=== PATIENT | female | born 1950 | race Caucasian/White ===

== ENCOUNTER → 2017-03-14 13:56 | Outpatient (CLI) | payer MEDICARE, OTHER, SELFPAY ==
[2017-03-14 14:13] LABS: Basophils % 0.4 % (0.1-2.0); Eosinophils # 0.1 K/mm3 (0.0-0.4); Eosinophils % 1.8 % (0.1-12.0); Hematocrit 37.7 % (37.0-47.0); Hemoglobin 12.2 g/dL (12.2-16.2); Lymphocytes # 2.2 K/mm3 (0.7-4.5); Lymphocytes % 34.7 K/mm3 (10-50); Mean Corpuscular HGB Conc 32.4 g/dL (31.8-35.4); Mean Corpuscular Volume 92.5 fl (81-99); Mean Platelet Volume 7.3 fl (7.4-10.4); Monocytes # 0.4 K/mm3 (0.1-1.0); Monocytes % 6.7 % (1.7-9.3); Neutrophils # 3.7 K/mm3 (1.8-7.8); Neutrophils % 56.4 % (37.0-80.0); Platelet Count 253 K/mm3 (142-424); Red Blood Count 4.07 M/mm3 (4.20-5.40); Red Cell Distribution Width 12.7 % (11.5-17.5); White Blood Count 6.5 K/mm3 (4.8-10.8)
[2017-03-14 15:00] LABS: Anion Gap 10.3 mEq/L (5-15); Blood Urea Nitrogen 10 mg/dL (7-18); Carbon Dioxide 29 mmol/L (21.0-32.0); Chloride 106 mmol/L (98-107); Creatinine,Serum 0.61 mg/dL (0.55-1.02); Estimated Glomerular Filt Rate 98 ml/min (>60); GFR (African American) 118 ML/MIN (>60); Glucose 96 mg/dL (74-106); Potassium 4.3 mmoL/L (3.5-5.1); Sodium 141 mmol/L (136-145)
== END ==
PROVIDERS: Family Provider Emergency Medicine; PCP Emergency Medicine; Visit Provider Surgery
DX: Z86.010 Personal history of colon polyps (principal)
CPT/HCPCS: 80048; 85025

== ENCOUNTER 2017-03-17 09:45 | Day surgery (SDC) | payer MEDICARE, OTHER, SELFPAY ==
[2017-03-16 10:39] VITALS: BMI 61.3
[2017-03-17 10:08] VITALS: BP 147/76; PULSE 69; RESP 18; TEMP 36.9; O2SAT 95
--- NOTE | 2017-03-17 10:11 | HMH.ANESCL ---
[facility] Anesthesia Checklist - Structural Data Admitted From: Home Planned Operative Procedure/s: colonoscopy Consent for Planned Operative Procedure(s) Verified: Yes Verified Documents: Surgical Consent - Airway Assessment C-Spine Mobility Assessed: Yes TMJ Mobility Assessed: Yes Dentition: Good Dentition - Neurological Assessment Level of Consciousness: Awake, Alert - Anesthesia Plan Anesthesia Risk discussed: Yes Anesthesia Plan: Verified ASA Class: III Anesthesia Type: MAC [facility] Anesthesia HX I have reviewed the patient's past medical history: Yes Medical History: Reports:: Cancer, Dementia, Hypertension, Lung Disease (asthma/lung nodules) Denies:: Diabetes Mellitus Type 1, Diabetes Mellitus Type 2 Laterality Cases: Left: Arthroscopy Shoulder, Bilateral: Other Other Surgeries: Yes: Appendectomy, Cancer Surgery (skin), Dilation and Curettage, Hysterectomy-Total, Hysterectomy-Partial, Other *Family Hx:: No significant family history
[2017-03-17 10:55] VITALS: O2SAT 98
--- NOTE | 2017-03-17 11:52 | HMH.SCOPE ---
- Procedure: Date: 03/17/17 Procedure Performed:: Colonoscopy with polypectomy Indications:: This is a 66-year-old female who underwent colonoscopy in December 2016. This procedure was somewhat complicated by severe spasticity, lack of relaxation, and moderate preparation. Focal inflammation of the cecum was biopsied and changes consistent with serrated adenoma were noted pathologically. Large complex polyps of the right colon and transverse colon were also excised. Performing Provider:: Brian Patel MD Referring Provider:: Dr. Pace Sedation:: Monitored anesthesia care Procedure:: After informed consent was obtained, the patient was taken to the endoscopy suite. Monitored anesthesia care ensued after she was transferred to the left lateral decubitus position. Digital rectal exam revealed no significant abnormality. The colonoscope was placed in position. The entire colon was evaluated. Bowel preparation was fair to moderate with large volume irrigation and suctioning used to improve visualization. Once again, the patient had fairly severe spasticity and lack of relaxation making visualization somewhat difficult. A polyp at [address] by way of cold biopsy forceps. A 1cm sessile transverse colon polyp and adjacent polyp were excised by way of snare. A cecal polyp was excised with cold biopsy forceps. A 9 mm ridge polyp of the cecum was excised by way of snare. No additional lesions were noted. An isolated diverticulum in the sigmoid colon was noted. The colonoscope was carefully removed and the patient was transferred to recovery. Findings:: Fair to moderate bowel preparation Once again, fairly severe spasticity and lack of relaxation were encountered Isolated sigmoid diverticulum Polyp at 40 1 cm sessile transverse colon polyp with adjacent polyp Cecal polyp 9 mm rich polyp of the cecum Specimens:: Polyp at 40 1 cm sessile transverse colon polyp with adjacent polyp Cecal polyp 9 mm rich polyp of the cecum Recommendations:: Repeat colonoscopy is pending pathology but will likely be around 1 year secondary to size/nature/number of polyps, spasticity, lack of relaxation, and somewhat limiting preparation Complications:: No immediate Estimated blood obtained (mL): 1
[2017-03-17 11:55] VITALS: BP 127/71; PULSE 100; RESP 20; TEMP 36.2; O2SAT 94
[2017-03-17 12:05] VITALS: BP 136/71; PULSE 88; RESP 18; O2SAT 94
[2017-03-17 12:15] VITALS: BP 145/77; PULSE 84; RESP 18; O2SAT 95
[2017-03-17 12:25] VITALS: BP 137/76; PULSE 82; RESP 16; O2SAT 94
== END 2017-03-17 12:25 | disposition home or self-care (01) ==
LOC: OUTP 09:49
PROVIDERS: Family Provider Emergency Medicine; PCP Emergency Medicine; Visit Provider Surgery
PROC: 0DJD8ZZ Inspection of Lower Intestinal Tract, Via Natural or Artificial Opening Endoscopic (ICD-10-PCS; principal; 2017-03-17 10:45)
DX: Z86.010 Personal history of colon polyps (principal); K63.5 Polyp of colon; K57.30 Diverticulosis of large intestine without perforation or abscess without bleeding
CPT/HCPCS: 45380; 45385; 88305; J2405; J2704

== ENCOUNTER → 2017-06-23 12:32 | Outpatient (CLI) | payer MEDICARE, OTHER, SELFPAY ==
--- NOTE | 2017-06-23 12:35 | XR_ITS ---
XR chest 2V HISTORY: ITS.REASON: cough ORDERING PHYSICIAN: Delicia Persaud PATIENT AGE: 66 years COMPARISON: 01/21/2016 FINDINGS: The cardiomediastinal silhouette and pulmonary vascularity are within normal limits. Patchy density is noted in both lung bases may be due to areas of atelectasis and/or infiltrate. Upper lobes are clear. There is some calcification noted at the region of the humeral necks on both sides medially. IMPRESSION: 1. Mild bibasilar atelectasis and/or infiltrate 2. Nonspecific ossification medial to the humeral neck on both sides
== END ==
PROVIDERS: PCP Nurse Practitioner Family; Visit Provider Nurse Practitioner Family
DX: R05 Cough (principal)
CPT/HCPCS: 71046

== ENCOUNTER → 2017-07-05 10:54 | Outpatient (CLI) | payer MEDICARE, OTHER, SELFPAY ==
--- NOTE | 2017-07-05 11:00 | XR_ITS ---
XR chest 2V HISTORY: ITS.REASON: PNEUMONIA ORDERING PHYSICIAN: Belkys Briseno PATIENT AGE: 67 years COMPARISON: 06/23/2017 FINDINGS: The cardiomediastinal silhouette and pulmonary vascularity are within normal limits. Right lower lobe airspace disease has improved. There is some minimal residual density within the lingula residual infiltrate slightly improved. IMPRESSION: 1. Improved right lower lobe infiltrate. 2. Persistent but slightly improved lingular infiltrate
== END ==
PROVIDERS: PCP Family Medicine; Visit Provider Nurse Practitioner Family
DX: J18.9 Pneumonia, unspecified organism (principal)
CPT/HCPCS: 71046

== ENCOUNTER → 2017-07-22 15:29 | Outpatient (CLI) | payer MEDICARE, OTHER, SELFPAY ==
--- NOTE | 2017-07-22 15:44 | XR_ITS ---
EXAM: XR cervical spine 5V HISTORY: ITS.REASON: CERVICALGIA ORDERING PHYSICIAN: Muna Harris PATIENT AGE: 67 years COMPARISON: None FINDINGS: There is straightening of the cervical lordosis. Degenerative disc disease is present at C4-C5, C5-C6, and C6-C7 with mild foraminal narrowing on the right at C5-C6 and on the left at C5-C6 and C6-C7 facet arthrosis present at C4-C7. Carotid artery calcifications also noted. IMPRESSION: Cervical spondylosis with degenerative disc disease and facet arthritic change with foraminal narrowing as described above
== END ==
PROVIDERS: PCP Nurse Practitioner; Visit Provider Nurse Practitioner
DX: M54.2 Cervicalgia (principal)
CPT/HCPCS: 72050

== ENCOUNTER → 2018-01-03 19:58 | Outpatient (CLI) | payer MEDICARE, OTHER, SELFPAY | PROVIDERS: PCP Nurse Practitioner Family; Visit Provider Nurse Practitioner Family | DX: G47.33 Obstructive sleep apnea (adult) (pediatric) (principal); R51 Headache; R40.0 Somnolence | CPT/HCPCS: 95811 ==

== ENCOUNTER → 2018-01-05 10:40 | Outpatient (CLI) | payer MEDICARE, OTHER, SELFPAY ==
--- NOTE | 2018-01-05 10:42 | MM_ITS ---
MM Dig screening mamm BI w/CAD ORDERING PHYSICIAN : Belkys Briseno PATIENT AGE: 67 years GENDER: Female COMPARISON: June 2009 studies film screen mammogram & October 2016 digital mammogram INDICATION: ITS.REASON: SCREENING no hormones. No new complaints. Family history Sister with breast cancer TECHNIQUE: Standard CC and MLO images were obtained. R2 CAD reviewed. Additional axillary cc views both breast as well as a additional right MLO view nipple profile FINDINGS: Moderately dense heterogeneous breasts. . Mild asymmetry. Mammography of somewhat decreased sensitivity in breast of this character The multiple additional views are helpful and speak against any significant new features or findings in either breast. Areas on one view dissipate adequately on another with no new areas of significant concern overall. . RIGHT BREAST is. stable... Follow-up in one year. LEFT BREAST:No significant new findings. Areas of nodularity on one view dissipate on the other views with no persistent or significant areas of concern IMPRESSION: No significant new findings. Bilateral follow-up in one year . Moderately dense heterogeneous breast, slightly decreased sensitivity of mammography in breast of this character but we see no significant new findings BI-RADS Category: 2 Benign Finding(s) RECOMMENDED FOLLOW-UP: 1YR 1 YEAR FOLLOW-UP (A letter has been sent to the patient regarding results of the study.)
== END ==
PROVIDERS: PCP Nurse Practitioner Family; Visit Provider Nurse Practitioner Family
DX: Z12.31 Encounter for screening mammogram for malignant neoplasm of breast (principal)
CPT/HCPCS: 77067

== ENCOUNTER → 2018-04-10 08:30 | Outpatient (POV) | payer MEDICARE, OTHER, SELFPAY | PROVIDERS: Visit Provider Nurse Practitioner Acute Care | DX: Z00.00 Encounter for general adult medical examination without abnormal findings (principal) ==

== ENCOUNTER 2020-04-26 06:22 | Emergency (ER) | payer MEDICARE, OTHER, SELFPAY ==
[2020-04-26 06:23] VITALS: BP 176/97; PULSE 82; RESP 16; TEMP 36.6; O2SAT 96; BMI 28.3
[2020-04-26 06:47] LABS: Appearance,Urine CLOUDY (Clear); Bilirubin,Urine Negative (Negative); Blood, Urine 3+ (Negative); Color,Urine YELLOW (Yellow); Glucose,Urine (UA) Negative (Negative); Ketones,Urine Negative (Negative); Leukocyte Esterase,Urine 2+ (Negative); Microscopic, Urine URINE MICROSCOPIC (MICROSCOPIC); Nitrate,Urine Negative (Negative); Protein,Urine TRACE (Negative); Specific Gravity, Urine 1.015 (1.005-1.030); Urobilinogen,Urine 0.2 EU/dl (0.2)
[2020-04-26 06:48] LABS: Basophils % 0.3 % (0.1-2.0); Eosinophils # 0.1 K/mm3 (0.0-0.4); Eosinophils % 0.9 % (0.1-12.0); Hematocrit 38.1 % (37.0-47.0); Hemoglobin 12.4 g/dL (12.2-16.2); Lymphocytes # 2.8 K/mm3 (0.7-4.5); Lymphocytes % 25.5 % (10-50); Mean Corpuscular HGB Conc 32.5 g/dL (31.8-35.4); Mean Corpuscular Volume 92.1 fl (81-99); Mean Platelet Volume 7.8 fl (7.4-10.4); Monocytes # 0.7 K/mm3 (0.1-1.0); Monocytes % 5.9 % (1.7-9.3); Neutrophils # 7.5 K/mm3 (1.8-7.8); Neutrophils % 67.4 % (37.0-80.0); Platelet Count 272 K/mm3 (142-424); Red Blood Count 4.14 M/mm3 (4.20-5.40); Red Cell Distribution Width 13.4 % (11.5-17.5); White Blood Count 11.1 K/mm3 (4.8-10.8)
[2020-04-26 06:56] LABS: Alanine Aminotransferase 11 U/L (12-78); Albumin Level 4.5 g/dl (3.5-5.0); Albumin/Globulin Ratio 1.4 (1.1-1.8); Alkaline Phosphatase 78 U/L (38-126); Anion Gap 12.9 mEq/L (5-15); Aspartate Amino Transferase 21 U/L (14-36); Bilirubin,Total 0.3 mg/dl (0.2-1.3); Blood Urea Nitrogen 8 mg/dl (7-17); Calcium 9.8 mg/dl (8.4-10.2); Carbon Dioxide 26 mmol/L (22.0-30.0); Chloride 106 mmol/L (98-107); Creatinine Clearance Estimated 60 mL/min (50-200); Estimated Glomerular Filt Rate 99 ml/min (>60); GFR (African American) 120 ML/MIN (>60); Globulin 3.2 g/dL (1.3-3.2); Glucose 101 mg/dl (74-100); Potassium 3.9 mmoL/L (3.5-5.1); Sodium 141 mmol/L (136-145); Total Protein,Serum 7.7 g/dl (6.3-8.2)
[2020-04-26 07:00] VITALS: BP 147/83; PULSE 68; O2SAT 94
[2020-04-26 07:00] LABS: Bacteria,Urine 1+ /lpf; Squamous Epithelial Cell,Urine Occasional #/hpf (0-5)
[2020-04-26 07:01] LABS: C-Reactive Protein 0.8 mg/L (0-4)
--- NOTE | 2020-04-26 07:10 | HMH.EDUROGF ---
ED Disposition Clinical Impression: UTI (urinary tract infection) Qualifiers: Urinary tract infection type: site unspecified Hematuria presence: without hematuria Qualified Code(s): N39.0 - Urinary tract infection, site not specified Disposition: Home, Self-Care Condition on Discharge: Good Instructions: DI for Urinary Tract Infection (UTI) Additional Instructions: fluids and use meds as directed Prescriptions: levoFLOXacin [Levaquin 500mg tab] 500 mg PO DAILY #7 tab Transmission Status: Pending to [id number] levoFLOXacin [Levaquin 500mg tab] 500 mg PO DAILY #7 tab Transmission Status: Pending to [facility] Referrals: Tiffany Overton [Primary Care Provider] - - Critical Care Critical Care Time: No Attestation: On 04/26/20, the high probability of a clinically significant, sudden or life threatening deterioration of the following system(s) required my full and direct attention, intervention and personal management. The time I documented below is in addition to time spent performing reported procedures but includes the following listed in this critical care notation. Medical Decision Making - Medical Records Medical records reviewed: Yes: I reviewed the patient's medical records. - Mook Inquiry Pt receiving controlled substance: No Vital Signs: 04/26/20 06:23 Temperature 97.9 F Temperature Source Oral Pulse Rate [Left Radial] 82 Respiratory Rate 16 Blood Pressure [Right Arm] 176/97 H Blood Pressure Mean [Right Arm] 123 Blood Pressure Source [Right Arm] Automatic Cuff Blood Pressure Position [Right Arm] Sitting 02 Sat by Pulse Oximetry 96 Oxygen Delivery Method Room Air - Lab Data Lab results reviewed: Yes: I reviewed the patient's lab results. Lab Results 04/26/20 06:30: Urine Color Yellow, Urine Appearance Cloudy, Urine pH 6.0, Ur Specific Iraan 1.015, Urine Protein Trace, Urine Glucose (UA) Negative, Urine Ketones Negative, Urine Blood 3+, Urine Nitrate Negative, Urine Bilirubin Negative, Urine Urobilinogen 0.2, Ur Leukocyte Esterase 2+ A, Urine RBC 10-20, Urine WBC 5-10, Ur Squamous Epith Cells Occasional, Urine Bacteria 1+ 04/26/20 06:30: WBC 11.1 H, RBC 4.14 L, Hgb 12.4, Hct 38.1, MCV 92.1, MCH 30.0, MCHC 32.5, RDW 13.4, Plt Count 272, MPV 7.8, Neut % (Auto) 67.4, Lymph % (Auto) 25.5, Gregory % (Auto) 5.9, Eos % (Auto) 0.9, Baso % (Auto) 0.3, Neut # (Auto) 7.5, Lymph # (Auto) 2.8, Gregory # (Auto) 0.7, Eos # (Auto) 0.1, Baso # (Auto) 0.0 04/26/20 06:30: Sodium 141, Potassium 3.9, Chloride 106, Carbon Dioxide 26, Anion Gap 12.9, BUN 8, Creatinine 0.60, Estimated Creat Clear 60, Estimated GFR 99, Est GFR ( Amer) 120, Glucose 101 H, Calcium 9.8, Total Bilirubin 0.3, AST 21, ALT 11 L, Alkaline Phosphatase 78, C-Reactive Protein 0.8, Total Protein 7.7, Albumin 4.5, Globulin 3.2, Albumin/Globulin Ratio 1.4 Result diagrams: 04/26/20 06:30 04/26/20 06:30 Orders (Tests/Meds): ED MEDICATIONS Generic Name Dose Route Start Last Admin Trade Name Freq PRN Reason Stop Dose Admin Sodium Chloride 1,000 mls @ 999 mls/hr 04/26/20 06:45 04/26/20 06:43 Sod Chlor 0.9% 1000ml Bag IV 04/26/20 07:45 999 mls/hr .Q1H1M DYAN Administration Ceftriaxone Sodium 1 gm/ 50 mls @ 100 mls/hr 04/26/20 07:00 04/26/20 07:03 Sodium Chloride IV 05/10/20 06:59 100 mls/hr Q24H DYAN Administration Protocol ORDERS Category Date Time Status Erythrocyte Sedimentation Rate Stat Lab 04/26/20 06:30 Received Procalcitonin Stat Lab 04/26/20 06:30 Received Urine Culture Stat Micro 04/26/20 06:30 Received Medical Decision Narrative: pt with abn uti and stable labs will start abx and ask pt to call pcp about culture results Female Urogenital HPI - General Chief complaint: Urogenital-Female Stated complaint: Possible UTI Time Seen by Provider: 04/26/20 07:00 Mode of Arrival: Ambulatory Source of Information: Patient, Medical Record Limitations: No Li
[2020-04-26 07:15] LABS: Procalcitonin 0.037 ng/mL (0.0-2.0)
[2020-04-26 07:16] LABS: Erythrocyte Sedimentation Rate 45 mm/hr (0-30)
[2020-04-26 08:01] VITALS: BP 157/89; PULSE 68; RESP 20; TEMP 36.6; O2SAT 95
[2020-04-26 08:11] VITALS: BP 145/71; PULSE 87; RESP 17; TEMP 36.7; O2SAT 97
== END 2020-04-26 08:00 | disposition home or self-care (01) ==
PROVIDERS: Emergency Provider Emergency Medicine; PCP Family Medicine
DX: N30.00 Acute cystitis without hematuria (principal); I10 Essential (primary) hypertension; K21.9 Gastro-esophageal reflux disease without esophagitis; F03.90 Unspecified dementia, unspecified severity, without behavioral disturbance, psychotic disturbance, mood disturbance, and anxiety; J45.909 Unspecified asthma, uncomplicated; Z79.899 Other long term (current) drug therapy; Z90.710 Acquired absence of both cervix and uterus
CPT/HCPCS: 80053; 81001; 84145; 85025; 85651; 86140; 87086; 87088; 87186; 96365; 96367; 99282

== ENCOUNTER 2023-11-04 08:55 | Outpatient (CLI) | payer MEDICARE, OTHER, SELFPAY ==
--- NOTE | 2023-11-04 09:00 | IR_ITS ---
FINAL REPORT CLINICAL HISTORY: RIGHT SHOULDER PAIN DAP 147.75 1.37 MIN FINDINGS: Arthrogram Right shoulder injection for CT arthrogram HISTORY: Right shoulder pain. PROCEDURE: After informed consent was obtained, a time-out was performed. Utilizing local anesthesia and sterile technique, with direct fluoroscopic guidance, access to the joint was obtained. Access to the joint was difficult secondary to the patient's shoulder arthroplasty which made visualization of the needle and contrast impossible until the joint had filled . IMPRESSION: Status post injection for CT arthrogram without immediate complication. Please see MRI report. Fluoroscopy time: 1 minute 37 seconds Fluoro dose: 147.75 DAP in [employer] reviewed , interpreted and dictated by Dr. Baker. Transcribed by Nicholas Cerda PA-C. Reviewed, Interpreted and Dictated by Young Baker MD Transcribed by FARZAD Valdivia Authenticated and [facility]
--- NOTE | 2023-11-04 09:14 | CT_ITS ---
FINAL REPORT TECHNIQUE: Axial imaging of the right shoulder was obtained after the intra-articular administration of contrast. CLINICAL HISTORY: SCREENING, ARTHROGRAM RIGHT SHOULDER FINDINGS: There are post arthroplasty changes. There is no obvious fracture. A small amount of contrast is seen in the subacromial bursa which may due to surgical defect or rotator cuff defect. Labrum is not well-visualized due to artifact and presumed postoperative changes. IMPRESSION: Postoperative changes of right shoulder arthroplasty without fracture or obvious hardware loosening. Reviewed, Interpreted and Dictated by Young Baker MD Transcribed by Rocio Gallagher Authenticated and . [facility]
[2023-11-04] MEDS: IOPAMIDOL-300 (61%) 100ML VIAL 10 ML IV (09:36)
== END 2023-11-04 23:59 | disposition home or self-care (01) ==
LOC: RAD 08:56
PROVIDERS: PCP Physician Assistant Surgical; Visit Provider Physician Assistant Surgical
DX: M25.511 Pain in right shoulder (principal)
CPT/HCPCS: 73040; 73201; Q9967

== ENCOUNTER 2024-09-20 06:27 | Day surgery (SDC) | payer MEDICARE, OTHER, SELFPAY ==
[2024-09-18 14:02] VITALS: BMI 24.7
--- NOTE | 2024-09-19 07:19 | EXP.HP ---
History of Present Illness *Admission Date: 09/20/24 *Reason for visit:: Screening for colon cancer/personal history of adenomatous colon polyps *History of present illness: Mrs. Denise is a 74-year-old female who is here for follow-up screening/surveillance colonoscopy. She does have a history of chronic constipation (outlet dysfunction constipation) and strong family history of colon cancer (father and brother). She is a local but also former [facility] patient. The patient was last seen in our office in December 2022. The patient had a colonoscopy in March 2017 (Brian Patel M.D.) and was found to have a serrated adenoma that was larger. Her colonoscopy with mo in February 2019 revealed 2 polyps (tubular adenoma x 1 and small serrated adenoma x 1) which were removed. She did have a repeat colonoscopy in Februarynd she did have a descending polyp that was not retrieved because of the bowel prep. She had extensive left-sided diverticulosis. The patient was placed on Linzess and was doing very well with this but more recently states that not only was it less effective but she ran out. She developed more significant obstipation with incomplete defecation and thin stringy stools. She had moderate bloating and abdominal discomfort. She feels that this was even playing some role with her blood pressure. She is here to reestablish. She reports no rectal bleeding. [facility] Disclaimer: The information contained in this section may have been updated after the patient was seen, as this information can be updated by other users. Medical History Sleep apnea Hypertension GERD (gastroesophageal reflux disease) Diverticulitis Asthma Dementia Anemia Surgical History History of hysterectomy Hx of cholecystectomy H/O shoulder replacement Hx of appendectomy History of hip replacement History of D&C History of cervical spinal surgery Family History Father Colon cancer Brother Colon cancer Social History (Updated 09/20/24 @ 06:56 by Shu Terry RN) Smoking Status: Never smoker second hand exposure: No alcohol intake: never substance use type: denies use current occupational status: unemployed Travel in the last 8 weeks?: None household members: spouse housing: house caffeine: Yes Have you lived/traveled outside US in past 30 days?: No Contact w/someone who lives/traveled outside US past 30 days?: No Exposure to someone with infectious disease in past 14 days?: No Do you have a fever (greater than 100.4 F or 38 C)?: No Have you tested positive for COVID-19?: No Exposed to someone with COVID-19 in past 14 days?: No Do you have a sore throat?: No Do you have a cough?: No Do you have any weakness?: No Are you experiencing any nausea/vomitting?: No Do you have any diarrhea?: No Are you experiencing any unusual bleeding?: No Do you have any muscle aches/pain?: No Do you have any abdominal pain?: No Are you experiencing loss of taste or smell?: No Other Medical History Have you received the Flu Vaccine for this season: No Have you received the Pneumonia Vaccine: Yes Review of Systems Review of Systems Review of systems (narrative): Negative *Cardiovascular Comments: Negative *Gastrointestinal Comments: Negative *Genitourinary Comments: Negative *Musculoskeletal Comments: Negative *Neurologic Comments: Negative Meds Home Medications and Allergies Home Medications ?Medication ?Instructions ?Recorded ?Confirmed ?Type memantine 10 mg tablet (Namenda) 10 mg PO BID GERD 03/14/17 09/18/24 History amlodipine 10 mg tablet 10 mg PO DAILY blood pressure 06/23/17 09/18/24 History omeprazole 20 mg capsule,delayed 20 mg PO DAILY GERD 06/23/17 09/18/24 History release citalopram 20 mg tablet 20 mg PO DAILY Anxiety 04/26/20 09/18/24 History donepezil 10 mg disintegrating 10 mg PO DAILY dementia 04/26/20 09/18/24 History tablet meloxicam 7.5 mg tablet 7.5 mg PO BID Bowel 04/26/20 09/18/24 History albuterol sulfate 90 mcg/actuation 2 puff inhalation Q4-6H PRN Asthma 06/06/24 09/18/24 History aerosol inhaler (Ventolin HFA) dextromethorphan 20 mg-quinidine 1 cap PO Q12H 06/06/24 09/18/24 History 10 mg capsule (Nuedexta) fluticasone furoate 100 1 inh inhalation DAILY 06/06/24 09/18/24 History mcg-vilanterol 25 mcg/dose inhalation powder (Breo Ellipta) linaclotide 290 mcg capsule 290 mcg PO DAILY #30 caps 06/06/24 09/18/24 Rx (Linzess) losartan 50 mg tablet 50 mg PO DAILY 06/06/24 09/18/24 History rivastigmine 9.5 mg/24 hour 9.5 mg transdermal DAILY 06/06/24 09/18/24 History transdermal patch tizanidine 4 mg capsule 4 mg PO HS PRN . 06/06/24 09/18/24 History New Prescriptions to Start Prescriptions: Allergies Allergy/AdvReac Type Severity Reaction Status Date / Time estrogens, conjugated Allergy Unknown I-HIVES Verified 09/20/24 06:57 (ESTROGENS, CONJUGATED) Exam Data for Last 24 hours I & O for Last 24 hours: Intake & Output 09/16/24 09/17/24 09/18/24 09/19/24 23:59 23:59 23:59 23:59 Weight 140 lb *Routine HEENT Exam Head: Present normocephalic Eye: Present EOMI and PERRL ENT: Present mucous membranes moist *Routine Neck Exam Neck: Present supple *Routine Respiratory Exam Respiratory: Present CTA bilaterally *Routine Cardiovascular Exam Cardiovascular: Present RRR *Routine Abdominal Exam Abdominal: Present soft and normoactive bowel sounds; Absent tenderness *Routine Rectal Exam Rectal:: deferred *Routine Genitalia Exam Genitalia:: deferred *Routine Extremities Exam Extremities: Absent cyanosis, clubbing or edema *Routine Skin Exam Skin: Present warm; Absent rash *Routine Neurological Exam Neurological: Present alert and oriented X3 Assessment and Plan *Assessment and plan (1) Personal history of adenomatous and serrated colon polyps: Status: Acute Category: Medical Code(s): Z86.0101 - Personal history of adenomatous and serrated colon polyps (2) Family history of colon cancer in father: Status: Acute Category: Medical Code(s): Z80.0 - Family history of malignant neoplasm of digestive organs Plan A/P: 1. Personal history of adenomatous colon polyps and family history of colon cancer is the preprocedural diagnosis. The patient will be anesthetized/sedated using MAC sedation. The patient has been seen and examined. Cardiac and lung assessment prior to the examination is stable. Proceed with planned screening colonoscopy.
[2024-09-20 06:47] VITALS: BP 164/73; PULSE 82; RESP 18; TEMP 36.7; O2SAT 94; BMI 24.7
[2024-09-20] MEDS: LACTATED RINGERS 1000ML 1,000 ML 50 ML IV (07:05)
--- NOTE | 2024-09-20 07:12 | P.PNANES_ITS ---
[facility] Disclaimer: The information contained in this section may have been updated after the patient was seen, as this information can be updated by other users. Medical History Sleep apnea Hypertension GERD (gastroesophageal reflux disease) Diverticulitis Asthma Dementia Anemia Surgical History History of hysterectomy Hx of cholecystectomy H/O shoulder replacement Hx of appendectomy History of hip replacement History of D&C History of cervical spinal surgery Family History Father Colon cancer Brother Colon cancer Social History (Updated 09/20/24 @ 06:56 by Shu Terry RN) Smoking Status: Never smoker second hand exposure: No alcohol intake: never substance use type: denies use current occupational status: unemployed Travel in the last 8 weeks?: None household members: spouse housing: house caffeine: Yes Have you lived/traveled outside US in past 30 days?: No Contact w/someone who lives/traveled outside US past 30 days?: No Exposure to someone with infectious disease in past 14 days?: No Do you have a fever (greater than 100.4 F or 38 C)?: No Have you tested positive for COVID-19?: No Exposed to someone with COVID-19 in past 14 days?: No Do you have a sore throat?: No Do you have a cough?: No Do you have any weakness?: No Are you experiencing any nausea/vomitting?: No Do you have any diarrhea?: No Are you experiencing any unusual bleeding?: No Do you have any muscle aches/pain?: No Do you have any abdominal pain?: No Are you experiencing loss of taste or smell?: No [facility] Anesthesia Checklist Patient Identification Patient Identification: Arm Band Structural Data Admitted From: Home Planned Operative Procedure/s: Colonoscopy Consent for Planned Operative Procedure(s) Verified: Yes Verified Documents: Surgical Consent and History and Physical NPO Status Verified Time NPO: 00:00 Additional verifications Anesthesia Reactions: No Airway Assessment Mallampati Score:: Class II C-Spine Mobility Assessed: Yes TMJ Mobility Assessed: Yes Dentition: Good Dentition Neurological Assessment Level of Consciousness: Awake, Alert and Appropriate Anesthesia Plan Anesthesia Risk discussed: Yes Anesthesia Plan: Verified ASA Class: II Anesthesia Type: MAC
--- NOTE | 2024-09-20 07:35 | P.PCN_ITS ---
[facility] Procedure Note Date: 09/20/24 Time: 07:54 Procedure Note:: Colonoscopy Procedure Report: Colonoscopy with cold snare polypectomy Endoscopist: Heraclio Pacheco II, MD Referring physician: Tiffany Maxwell MD [address] [place] [address]. [facility], [place] [address] Date of Procedure: September 20, 2024 Equipment: Olympus [id number] adult colonoscope Sedation: MAC sedation Indication: Mrs. Denise is a 74-year-old female who is here for follow-up screening/surveillance colonoscopy. She does have a history of chronic constipation (outlet dysfunction constipation) and strong family history of colon cancer (father and brother). The patient had a colonoscopy in March 2017 (Brian Patel M.D.) and was found to have a serrated adenoma that was larger. Her colonoscopy with ia in February 2019 revealed 2 polyps (tubular adenoma x 1 and small serrated adenoma x 1) which were removed. She did have a repeat colonoscopy in February 2022 and she did have a descending polyp and she had extensive left-sided diverticulosis. The patient was placed on Linzess and was doing very well with this but more recently states that not only was it less effective but she ran out. She developed more significant obstipation with incomplete defecation and thin stringy stools. She had moderate bloating and a bdominal discomfort. She feels that this was even playing some role with her blood pressure. She reports no rectal bleeding. Procedure: Prior to the procedure, a history and physical exam was performed, and patient's medications and allergies were reviewed. The risks, benefits and alternatives of the sedation and procedure were discussed with the patient. All questions were answered and informed consent was obtained. The patient was brought to the procedure room. Patient identification and proposed procedure were verified by the physician and the nurse. The patient was placed in a left lateral decubitus position and the scope was passed under direct vision. Throughout the procedure, the patient's blood pressure, pulse, and oxygen saturations were monitored continuously. The colonoscopy was accomplished without difficulty. The patient tolerated the procedure well. Findings: On digital rectal examination there was normal rectal tone. There were no external hemorrhoids. There was an anterior rectocele. The colonoscope was introduced through the anal canal to the rectum and advanced to the cecum. The ileocecal valve and appendiceal orifice were identified. The scope was advanced a short distance into the ileum which appeared grossly normal. The scope was then withdrawn into the colon. There were 4 polyps (ascending x 2 (3 and 5 mm) and transverse x 2 (3 and 4 mm)). These were all removed via cold snare polypectomy. The remaining cecum, ascending and transverse colon and mucosa were grossly normal. There were scattered diverticuli throughout the descending and sigmoid colon (LEFT colon). The rectal vault was boggy and somewhat flaccid. Upon retroflexion within the rectum there were 2 internal hemorrhoids. The preparation was excellent throughout with [place] Preparation Score of 9. The cecal time was 14 minutes. Impression: 1. Diminutive colonic polyps x 4 2. Left-sided diverticulosis 3. Anterior rectocele 4. Grade 2 internal hemorrhoids Plan: I will follow-up the polyp histology. I would recommend continuing the Nenas and Anisha. I would like for her to have completion of pelvic floor physical therapy because of her outlet dysfunction constipation.
[2024-09-20 07:57] VITALS: BP 149/73; PULSE 91; RESP 16; TEMP 36.1; O2SAT 96
[2024-09-20 08:07] VITALS: BP 136/72; PULSE 90; RESP 18; O2SAT 97
[2024-09-20 08:17] VITALS: BP 126/65; PULSE 86; RESP 16; O2SAT 98
[2024-09-20 08:27] VITALS: BP 125/67; PULSE 84; RESP 16; O2SAT 98
== END 2024-09-20 08:31 | disposition home or self-care (01) ==
PROVIDERS: PCP Family Medicine; Visit Provider Internal Medicine Gastroenterology
PROC: 0DJD8ZZ Inspection of Lower Intestinal Tract, Via Natural or Artificial Opening Endoscopic (ICD-10-PCS; CPT 45378; principal; 2024-09-20 08:00)
DX: Z12.11 Encounter for screening for malignant neoplasm of colon (principal); D12.2 Benign neoplasm of ascending colon; D12.3 Benign neoplasm of transverse colon; K57.30 Diverticulosis of large intestine without perforation or abscess without bleeding; N81.6 Rectocele; K64.1 Second degree hemorrhoids; Z86.0101 Personal history of adenomatous and serrated colon polyps; Z80.0 Family history of malignant neoplasm of digestive organs; J45.909 Unspecified asthma, uncomplicated; K21.9 Gastro-esophageal reflux disease without esophagitis; I10 Essential (primary) hypertension; Z79.899 Other long term (current) drug therapy
CPT/HCPCS: 45385; J2003; J2704; J7120